=== PATIENT | male | born 1975 | race Caucasian/White ===

== ENCOUNTER 2019-04-18 00:27 | Inpatient (IN) | payer MEDICAID, OTHER ==
[~2019-04-18] VITALS: Ht 180.3 cm; Wt 147.6 kg
[2019-04-18] MEDS ORDERED: ONDANSETRON HCL 4MG/2ML INJ IV STA (01:32)
[2019-04-18] MEDS ORDERED: MORPHINE SULFATE 4 MG/ML CPJ (NOT FOR IM USE) IV STA (01:32)
[2019-04-18] MEDS ORDERED: SODIUM CHLORIDE 0.9% 1,000 ML IV ONE (01:32)
[2019-04-18] MEDS ORDERED: FAMOTIDINE 20MG/2ML VIAL IV STA (01:32)
[2019-04-18 02:02] LABS: BASOPHILS % 0.3 % (0.0-2.0); EOSINOPHILS % 0.1 % (0.0-5.0); HEMATOCRIT. 42.2 % (42.0-52.0); HEMOGLOBIN. 13.9 g/dL (14.0-18.0); LYMPHOCYTES % 9.4 % (20.0-50.0); MEAN CORPUSCULAR HEMOGLOBIN 27.3 pg (28.0-32.0); MEAN CORPUSCULAR VOLUME 82.7 fL (80.0-94.0); MEAN PLATELET VOLUME 8.6 fl (7.4-10.4); MONOCYTES % 4.8 % (2.0-8.0); NEUTROPHILS % 85.4 % (40.0-76.0); PLATELET 284 x1000/uL (130-400); RED BLOOD CELL COUNT 5.11 mill/uL (4.7-6.1); RED CELL DISTRIBUTION WIDTH 13.4 % (11.6-14.6)
[2019-04-18 02:04] LABS: CHLORIDE 108 mEq/L (98-107)
[2019-04-18 02:10] LABS: BETA HYDROXYBUTYRATE 0.1 mMol/L (0.0-0.3)
[2019-04-18 03:22] LABS: CLARITY URINE CLEAR (CLEAR); COLOR URINE DARK YELLOW (YELLOW); KETONES URINE TRACE (NEGATIVE); LEUKOCYTE ESTERASE URINE NEGATIVE (NEGATIVE); NITRITE URINE NEGATIVE (NEGATIVE); OCCULT BLOOD URINE NEGATIVE (NEGATIVE); PROTEIN URINE 2+ (NEGATIVE); SPECIFIC GRAVITY URINE 1.033 (1.005-1.030)
[2019-04-18] MEDS ORDERED: CEFTRIAXONE 1 G PREMIX 50 ML IV ONE (03:45)
[2019-04-18] MEDS ORDERED: KETOROLAC 15MG/ML VIAL IV ONE (04:15)
[2019-04-18 07:45] VITALS: BP 132/65
[2019-04-18 08:00] VITALS: BP 132/65
[2019-04-18] MEDS ORDERED: HYDROCODONE/ACETAMINOPHEN 5/325MG TABLET PO PRN (08:15)
[2019-04-18] MEDS ORDERED: ACETAMINOPHEN 325MG TABLET PO PRN (08:15)
[2019-04-18] MEDS ORDERED: IPRATROPIUM/ALBUTEROL 0.5-3(2.5)MG/3ML NEB INH PRN (08:15)
[2019-04-18] MEDS ORDERED: LORAZEPAM 0.5MG TABLET PO PRN (08:15)
[2019-04-18] MEDS ORDERED: CLONIDINE 0.1MG TABLET PO PRN (08:15)
[2019-04-18] MEDS ORDERED: ONDANSETRON HCL 4MG/2ML INJ IV PRN (08:15)
[2019-04-18] MEDS ORDERED: OMEP40CA34 MT (09:00)
[2019-04-18] MEDS ORDERED: LOSA50TA41 MT (09:00)
[2019-04-18] MEDS ORDERED: INSU100I24 SQ (09:00)
[2019-04-18] MEDS ORDERED: INSU100V34 SQ (09:00)
[2019-04-18] MEDS: MORPHINE SULFATE 2 MG/ML CPJ (NOT FOR IM USE) IV PRN ×2 (09:07→22:33)
[2019-04-18] MEDS ORDERED: DEXTROSE 50% WATER 50ML SYRINGE IV NR (10:15)
[2019-04-18] MEDS: OMEPRAZOLE 20MG CAPSULE EXTENDED RELEASE PO SCH (10:48)
[2019-04-18] MEDS: LOSARTAN POTASSIUM 50 MG TABLET PO SCH (10:49)
[2019-04-18 11:45] VITALS: BP 126/56
[2019-04-18 11:47] LABS: *BARBITURATES SCREEN URINE NEGATIVE (NEGATIVE)
[2019-04-18 11:48] LABS: *AMPHETAMINES SCREEN URINE NEGATIVE (NEGATIVE); *BENZODIAZEPINES SCREEN URINE NEGATIVE (NEGATIVE); *COCAINE SCREEN URINE NEGATIVE (NEGATIVE); METHADONE URINE SCREEN NEGATIVE (NEGATIVE); OPIATES URINE SCREEN PRESUMTIVE POSITIVE (NEGATIVE)
[2019-04-18 11:49] LABS: CANNABINOID URINE SCREEN PRESUMTIVE POSITIVE (NEGATIVE); PHENCYCLIDINE URINE SCREEN NEGATIVE (NEGATIVE)
[2019-04-18] MEDS: INSULIN LISPRO 100 UNITS/ML SUBCUT SCH ×2 (12:50→18:01)
[2019-04-18] MEDS ORDERED: INSULIN LISPRO 100 UNITS/ML SUBCUT SCH (12:50)
[2019-04-18] MEDS ORDERED: LEVETIRACETAM 500 MG in SODIUM CHLORIDE 0.9% 100 ML IV SCH (14:00)
[2019-04-18] MEDS ORDERED: LEVETIRACETAM 500 MG in SODIUM CHLORIDE 0.9% 100 ML IV NR (14:30)
[2019-04-18 18:36] LABS: LDL CHOLESTEROL 134 mg/dL (5-100); TOTAL IRON BINDING CAPACITY 315 ug/dL (250-450)
[2019-04-18 18:38] LABS: HDL CHOLESTEROL 34 mg/dL (40-59)
[2019-04-18 20:00] VITALS: BP 132/79
[2019-04-18] MEDS ORDERED: INSULIN GLARGINE UD 100 UNITS/ML SYR SUBCUT SCH (22:00)
[2019-04-18] MEDS: LEVETIRACETAM 500 MG in SODIUM CHLORIDE 0.9% 100 ML IV SCH (22:23)
[2019-04-18] MEDS: INSULIN GLARGINE UD 100 UNITS/ML SYR SUBCUT SCH (22:45)
[2019-04-19] VITALS: BP 139/69
[2019-04-19 04:00] VITALS: BP 127/61
[2019-04-19 07:19] LABS: HEMATOCRIT. 40.9 % (42.0-52.0); HEMOGLOBIN. 13.6 g/dL (14.0-18.0); MEAN CORPUSCULAR HEMOGLOBIN 27.9 pg (28.0-32.0); MEAN CORPUSCULAR VOLUME 84.2 fL (80.0-94.0); MEAN PLATELET VOLUME 9.4 fl (7.4-10.4); PLATELET 227 x1000/uL (130-400); RED BLOOD CELL COUNT 4.85 mill/uL (4.7-6.1); RED CELL DISTRIBUTION WIDTH 13.6 % (11.6-14.6)
[2019-04-19] MEDS: OMEPRAZOLE 20MG CAPSULE EXTENDED RELEASE PO SCH (07:21)
[2019-04-19 07:25] LABS: CHLORIDE 108 mEq/L (98-107)
[2019-04-19] MEDS: INSULIN LISPRO 100 UNITS/ML SUBCUT SCH ×3 (07:51→17:40)
[2019-04-19 08:00] VITALS: BP 105/64
[2019-04-19] MEDS: LOSARTAN POTASSIUM 50 MG TABLET PO SCH (09:00)
[2019-04-19] MEDS: INSULIN GLARGINE UD 100 UNITS/ML SYR SUBCUT SCH ×2 (10:04→22:02)
[2019-04-19] MEDS: LEVETIRACETAM 500 MG in SODIUM CHLORIDE 0.9% 100 ML IV SCH ×2 (10:39→22:01)
[2019-04-19 12:00] VITALS: BP 134/80
[2019-04-19 16:00] VITALS: BP 133/76
[2019-04-19 19:45] LABS: PLATELET ESTIMATE NORMAL
[2019-04-19 20:00] VITALS: BP_SYST 119; BP_SYST 121; BP_SYST 135; BP_DIAS 63; BP_DIAS 66; BP_DIAS 78
[2019-04-19] MEDS ORDERED: ATORVASTATIN CALCIUM 10MG TABLET PO SCH (21:00)
[2019-04-20] VITALS: BP 143/82
[2019-04-20 04:00] VITALS: BP 144/63
[2019-04-20] MEDS: OMEPRAZOLE 20MG CAPSULE EXTENDED RELEASE PO SCH (06:22)
[2019-04-20 06:40] LABS: BASOPHILS % 0.2 % (0.0-2.0); EOSINOPHILS % 0.9 % (0.0-5.0); HEMATOCRIT. 41.8 % (42.0-52.0); LYMPHOCYTES % 29.9 % (20.0-50.0); MEAN CORPUSCULAR HEMOGLOBIN 27.7 pg (28.0-32.0); MEAN PLATELET VOLUME 8.5 fl (7.4-10.4); MONOCYTES % 8.1 % (2.0-8.0); NEUTROPHILS % 60.9 % (40.0-76.0); PLATELET 275 x1000/uL (130-400); RED BLOOD CELL COUNT 5.04 mill/uL (4.7-6.1); RED CELL DISTRIBUTION WIDTH 13.6 % (11.6-14.6)
[2019-04-20 06:46] LABS: CHLORIDE 106 mEq/L (98-107)
[2019-04-20] MEDS: LOSARTAN POTASSIUM 50 MG TABLET PO SCH (08:09)
[2019-04-20] MEDS: LEVETIRACETAM 500 MG in SODIUM CHLORIDE 0.9% 100 ML IV SCH (08:09)
[2019-04-20] MEDS: INSULIN LISPRO 100 UNITS/ML SUBCUT SCH ×2 (08:11→14:07)
[2019-04-20 12:25] VITALS: BP_SYST 134; BP_SYST 136; BP_DIAS 77; BP_DIAS 80; BP_DIAS 86
[2019-04-20] MEDS: INSULIN GLARGINE UD 100 UNITS/ML SYR SUBCUT SCH (14:07)
[2019-04-20 14:58] VITALS: BP 136/86
[2019-04-20 16:00] VITALS: BP 126/82
== END 2019-04-20 19:36 | disposition home or self-care (01) | DRG 48 ==
LOC: ER 00:46 → 6EST 05:14 → EDBEDREQ 05:17 → EDBEDREQTM 05:17 → ENRESERV 05:35 → 5WST 16:00
PROVIDERS: ADMIT Internal Medicine; ATTEND Internal Medicine
DX: G90.8 Other disorders of autonomic nervous system (principal); R65.10 Systemic inflammatory response syndrome (SIRS) of non-infectious origin without acute organ dysfunction; E66.01 Morbid (severe) obesity due to excess calories; L02.211 Cutaneous abscess of abdominal wall; I11.9 Hypertensive heart disease without heart failure; Z68.42 Body mass index [BMI] 45.0-49.9, adult; N39.0 Urinary tract infection, site not specified; D64.9 Anemia, unspecified; E78.5 Hyperlipidemia, unspecified; E87.6 Hypokalemia; F12.90 Cannabis use, unspecified, uncomplicated; G40.909 Epilepsy, unspecified, not intractable, without status epilepticus; R32 Unspecified urinary incontinence; Z79.4 Long term (current) use of insulin
CPT/HCPCS: 36415; 70544; 70553; 71045; 74176; 80048; 80061; 80305; 80320; 82010; 82728; 82962; 83036; 83540; 83550; 83605; 83735; 84145; 84443; 84484; 93005; 93306; 93880; 96374; 96375; 97162; 97165; 99285; J0696; J1815; J1885; J1953; J2270; J2405; J3490; J7030; J7050; G0480

== ENCOUNTER 2022-05-20 12:11 | Emergency (ER) | payer MEDICAID ==
[~2022-05-20] VITALS: Ht 180.3 cm; Wt 82.0 kg
[~2022-05-20 12:11] MED LIST: INSLIS SUBCUT; INSU100I28 SQ; LOSA50TA41 PO; OMEP40CA20 MT
[2022-05-20] MEDS ORDERED: ACETAMINOPHEN WITH CODEINE 300/30MG TABLET PO STA (12:41)
[2022-05-20] MEDS ORDERED: SODIUM CHLORIDE 0.9% 1,000 ML IV ONE ×2 (12:45→13:45)
[2022-05-20 13:05] LABS: BASOPHILS % 0.2 % (0.0-2.0); EOSINOPHILS % 0.3 % (0.0-5.0); HEMATOCRIT. 46.1 % (42.0-52.0); LYMPHOCYTES % 23.8 % (20.0-50.0); MEAN CORPUSCULAR HEMOGLOBIN 29.6 pg (28.0-32.0); MEAN CORPUSCULAR VOLUME 85.4 fL (80.0-94.0); MEAN PLATELET VOLUME 8.2 fl (7.4-10.4); MONOCYTES % 6.1 % (2.0-8.0); NEUTROPHILS % 69.6 % (40.0-76.0); PLATELET 341 x1000/uL (130-400); RED CELL DISTRIBUTION WIDTH 12.7 % (11.6-14.6)
[2022-05-20 13:14] LABS: CHLORIDE 101 mEq/L (98-107)
[2022-05-20 13:25] LABS: ETHANOL BLOOD < 10 mg/dL
[2022-05-20] MEDS ORDERED: KETOROLAC 15MG/ML VIAL IV ONE (14:15)
[2022-05-20] MEDS ORDERED: OMEP40CA20 MT (15:10)
[2022-05-20] MEDS ORDERED: INSLIS SUBCUT (15:10)
[2022-05-20] MEDS ORDERED: INSU100I28 SQ (15:10)
[2022-05-20 16:00] VITALS: BP 121/65
== END 2022-05-20 16:01 | disposition home or self-care (01) ==
LOC: ER 12:11
DX: R55 Syncope and collapse (principal); R07.89 Other chest pain; R20.0 Anesthesia of skin; E11.65 Type 2 diabetes mellitus with hyperglycemia; Z79.4 Long term (current) use of insulin
CPT/HCPCS: 36415; 70450; 71045; 80053; 80320; 82962; 83690; 83880; 84484; 85025; 93005; 96374; 99285; J1885; J7030; G0480